=== PATIENT | female | born 1975 | race African-American/Black ===

== ENCOUNTER → 2018-10-08 | Outpatient (CLI) | payer OTHER ==
[~2018-10-08] MED LIST: IBUPROFEN 600600 M1 PO; IBUPROFEN 800800 MG PO; MACROBID 100 M100 M1 PO; NAPROSYN500 MG PO; NOHOMEMEDICATIONS; VITAMIN B-12100 MC1 PO
== END ==
LOC: BC 09:14
DX: Z12.31 Encounter for screening mammogram for malignant neoplasm of breast (principal)

== ENCOUNTER 2020-09-07 11:07 | Emergency (ER) | payer OTHER ==
[~2020-09-07] VITALS: Ht 175.3 cm; Wt 120.2 kg
[2020-09-07 11:58] LABS: ABSOLUTE NEUTROPHILS 3.2 thou/uL (1.4-8.2); BASOPHILS 0.8 % (0.0-2.0); EOSINOPHILS 3.8 % (0.0-3.0); HEMATOCRIT 36.1 % (37.0-47.0); HEMOGLOBIN 12.2 gm/dL (12.0-15.0); LYMPHOCYTES 31.9 % (24.0-44.0); MCH 28.9 pg (26.0-34.0); MCHC 33.8 g/dL (28.0-37.0); MCV 85.6 fL (80.0-100.0); MONOCYTES 9.4 % (1.0-8.0); PLATELET COUNT 296 thou/uL (150-400); POLYS 54.1 % (36.0-66.0); RBC 4.22 mil/uL (4.20-5.00); RDW 13.1 % (10.5-14.5)
[2020-09-07 12:05] LABS: ANION GAP 7 mmol/L (7-16); BUN 15 mg/dL (7-18); CALCIUM 8.7 mg/dL (8.5-10.1); CHLORIDE 105 mmol/L (98-107); CO2 27 mmol/L (21-32); CREATININE 1.3 mg/dL (0.6-1.0); GLUCOSE 91 mg/dL (74-106); POTASSIUM 4.9 mmol/L (3.5-5.1); SODIUM 139 mmol/L (136-145)
[2020-09-07 12:16] LABS: ALBUMIN 3.7 g/dL (3.4-5.0); SGOT 21 U/L (15-37); SGPT 18 U/L (14-59); TOTAL BILIRUBIN 0.3 mg/dL (0.2-1.0); TROPONIN-I <0.06 ng/mL (<0.06)
--- NOTE | 2020-09-07 12:54 | EKG ---
[address] [place] [address] ELECTROCARDIOGRAM REPORT Name: VALENCIANATHANDEDE GREEN Room #: [id number] Admission: 09/07/20 Attend Phys: Discharge: Date of : 79 Report #: [id number] [facility] ED Test Date: 2020-09-07 Test Time: 11:16:05 Pat Name: MARIO ALBERTO [place] Department: Room: Gender: F Social Studies Department Chair: HAYDEE : 1975 Requested By: Farrukh Haque Order Number: [id number] MD: Sacha Hu Measurements Intervals [place] Rate: 63 P: 57 KS: 140 QRS: 9 QRSD: 113 T: 31 QT: 400 QTc: 410 Interpretive Statements Sinus rhythm Borderline intraventricular conduction delay Compared to ECG 08/19/2013 11:40:29 No significant changes Electronically Signed On 09-07-2020 12:53:55 CDT by Sacha Hu [email or web address] <ELECTRONICALLY SIGNED> By: Sacha Hu MD, [facility] 09/07/20 [id number] Sacha Hu MD, FACC /EPI
[2020-09-07 13:56] LABS: URINE BILIRUBIN NEGATIVE (Negative); URINE BLOOD NEGATIVE (Negative); URINE CLARITY CLEAR; URINE COLOR YELLOW; URINE GLUCOSE-RANDOM* NEGATIVE (Negative); URINE KETONES NEGATIVE (Negative); URINE LEUKOCYTES-REFLEX NEGATIVE (Negative); URINE NITRITE-REFLEX NEGATIVE (Negative); URINE PROTEIN (DIPSTICK) NEGATIVE (Negative); URINE SPECIFIC GRAVITY 1.015 (1.005-1.035); URINE UROBILINOGEN 0.2 E.U./dl (0.2-1.0)
[2020-09-07 15:13] VITALS: BP 133/82
[2020-09-07] MEDS ORDERED: PREDNISONE 20 M20 MG PO (15:19)
== END 2020-09-07 15:13 | disposition home or self-care (01) ==
LOC: ER 11:07
PROVIDERS: Emergency Medicine Emergency Medical Services; Physician Assistant
DX: R07.89 Other chest pain (principal); R22.1 Localized swelling, mass and lump, neck; F17.210 Nicotine dependence, cigarettes, uncomplicated; Z86.2 Personal history of diseases of the blood and blood-forming organs and certain disorders involving the immune mechanism; Z98.51 Tubal ligation status

== ENCOUNTER → 2021-02-10 | Outpatient (CLI) | payer OTHER ==
[~2021-02-10] MED LIST changes: +PREDNISONE 20 M20 MG PO
== END ==
LOC: BC 08:43
PROVIDERS: ATTEND Family Medicine
DX: Z12.31 Encounter for screening mammogram for malignant neoplasm of breast (principal); N64.89 Other specified disorders of breast

== ENCOUNTER → 2021-02-17 | Outpatient (CLI) | payer OTHER | LOC: BC 09:12 → ULTRA 09:27 | PROVIDERS: ATTEND Radiology Diagnostic Radiology | DX: N64.4 Mastodynia (principal); N60.01 Solitary cyst of right breast ==